=== PATIENT | male | born 1960 | race Hispanic/Latino ===

== ENCOUNTER 2018-12-10 17:31 | Inpatient (IN) | payer MEDICARE ==
[~2018-12-10] VITALS: Ht 165.1 cm; Wt 47.4 kg
[2018-12-10] MEDS ORDERED: SODIUM CHLORIDE 0.9% 1000ML 1,000 ML IV ONE ×2 (18:25→20:06)
[2018-12-10 18:59] LABS: BASOPHILS % (AUTO) 0.4 % (0.0-5.0); EOSINOPHILS % (AUTO) 0.1 % (0.0-8.0); HEMATOCRIT 33.2 % (42-54); LYMPHOCYTES % (AUTO) 12.1 % (21.0-51.0); MEAN CORPUSCULAR HEMOGLOBIN 30.4 pg (27.0-33.0); MEAN CORPUSCULAR HGB CONC 32.7 g/dL (32.0-36.0); MEAN CORPUSCULAR VOLUME 93.1 fL (79-99); NEUTROPHILS % (AUTO) 77.4 % (40.0-77.0); RED BLOOD CELL COUNT(AUTO) 3.56 MIL/uL (4.50-6.20); RED CELL DISTRIBUTION WIDTH 15.5 % (11.0-15.5); WHITE BLOOD COUNT (AUTO) 10.4 K/uL (4.8-10.8)
[2018-12-10 19:01] LABS: APPEARANCE,URINE Clear (CLEAR); BILIRUBIN,URINE Negative (NEGATIVE); COLOR,URINE Yellow (YELLOW); GLUCOSE, URINE (UA) Negative (NEGATIVE); KETONES,URINE Trace mg/dL (NEGATIVE); LEUKOCYTE ESTERASE ,URINE Negative (NEGATIVE); NITRATE,URINE Negative (NEGATIVE); OCCULT BLOOD,URINE Negative (NEGATIVE); PROTEIN,URINE Trace mg/dL (NEGATIVE)
[2018-12-10 19:11] LABS: CREATININE 1.4 mg/dL (0.5-1.5); POTASSIUM 4.7 mmol/L (3.5-5.1)
[2018-12-10 19:15] LABS: ALBUMIN 2.3 g/dL (3.5-5.0); BILIRUBIN,TOTAL 0.4 mg/dL (0.2-1.0); TOTAL PROTEIN, SERUM 8.9 g/dL (6.0-8.3)
[2018-12-10 19:21] LABS: PLATELET COUNT (AUTO) 717 K/uL (130-400)
[2018-12-10 19:40] LABS: BACTERIA,URINE Few /HPF (None Seen); RBC,URINE None Seen /HPF (0-1); SQUAMOUS EPITHELIAL CELL,UR None Seen /HPF (0-2); WBC,URINE 0-1 /HPF (0-1)
[2018-12-10] MEDS ORDERED: MORPHINE SULFATE 4 MG/1ML SYG ONE (20:06)
[2018-12-10] MEDS ORDERED: ONDANSETRON HCL 4 MG/2 ML VIAL ONE (20:06)
[2018-12-10 22:01] LABS: CRP QUANTITATIVE 208.7 mg/L (0.00-9.0)
[2018-12-10] MEDS ORDERED: LACTULOSE 20 GM/30 ML UDCUP PO PRN (22:15)
[2018-12-10] MEDS ORDERED: NITROGLYCERIN 0.4 MG SL TAB SL PRN (22:15)
[2018-12-10] MEDS: SODIUM CHLORIDE 0.9% 1000ML 1,000 ML IV SCH (22:15)
[2018-12-10] MEDS ORDERED: MORPHINE SULFATE 2 MG/ML 1ML SYG IV PRN (22:15)
[2018-12-10] MEDS ORDERED: ACETAMINOPHEN 650 MG SUPPOSITORY RC PRN ×2 (22:15)
[2018-12-10] MEDS ORDERED: ONDANSETRON HCL 4 MG/2 ML VIAL IV PRN (22:15)
[2018-12-10] MEDS ORDERED: BISACODYL 10 MG SUPP.RECT RC ONE (22:21)
[2018-12-10 22:34] LABS: INR 1.06 (0.85-1.15); PARTIAL THROMBOPLASTIN TIME 32.9 SEC (26.3-35.5); PROTHROMBIN TIME 11.1 SEC (9.6-11.6)
[2018-12-11] MEDS ORDERED: LACTULOSE 20 GM/30 ML UDCUP ONE (00:57)
[2018-12-11] MEDS ORDERED: MORPHINE SULFATE 4 MG/1ML SYG ONE (00:58)
[2018-12-11] MEDS ORDERED: SODIUM CHLORIDE 0.9% 1000ML 1,000 ML IV ONE (04:22)
[2018-12-11 04:42] LABS: HEMATOCRIT 29.4 % (42-54); MEAN CORPUSCULAR HEMOGLOBIN 31.3 pg (27.0-33.0); MEAN CORPUSCULAR HGB CONC 33.5 g/dL (32.0-36.0); MEAN CORPUSCULAR VOLUME 93.3 fL (79-99); PLATELET COUNT (AUTO) 589 K/uL (130-400); RED BLOOD CELL COUNT(AUTO) 3.15 MIL/uL (4.50-6.20); RED CELL DISTRIBUTION WIDTH 15.7 % (11.0-15.5); WHITE BLOOD COUNT (AUTO) 7.9 K/uL (4.8-10.8)
[2018-12-11 04:57] LABS: ALBUMIN 1.9 g/dL (3.5-5.0); BILIRUBIN,TOTAL 0.3 mg/dL (0.2-1.0); CREATININE 1.2 mg/dL (0.5-1.5); POTASSIUM 4.3 mmol/L (3.5-5.1); TOTAL PROTEIN, SERUM 7.4 g/dL (6.0-8.3)
[2018-12-11 04:58] LABS: BASOPHILS % (MANUAL) 2 % (0-2); EOSINOPHILS % (MANUAL) 1 % (1-6); LYMPHOCYTES % (MANUAL) 18 % (22-44); MAN.DIFF COMMENT-IMPRESSION MANUAL DIFFERENTIAL; MONOCYTES % (MANUAL) 10 % (2-9); PLATELET MORPHOLOGY COMMENT INCREASED; SEGMENTED NEUTROPHILS % 69 % (40-70)
[2018-12-11] MEDS ORDERED: SULF500T49 PO (06:26)
[2018-12-11] MEDS ORDERED: LACT10SO46 PO (06:26)
[2018-12-11] MEDS ORDERED: LISI-617 PO (06:26)
[2018-12-11] MEDS ORDERED: METO25TA6 PO (06:26)
[2018-12-11] MEDS ORDERED: PRED5TAB PO (06:26)
[2018-12-11] MEDS ORDERED: TRAM50TA4 PO (06:26)
[2018-12-11] MEDS ORDERED: TRAZ-185 PO (06:26)
[2018-12-11 06:29] VITALS: BP 125/77
[2018-12-11] MEDS: MORPHINE SULFATE 4 MG/1ML SYG IV PRN ×2 (06:43→13:55)
[2018-12-11 07:00] VITALS: BP 119/75
--- NOTE | 2018-12-11 08:00 | NUR ---
ASSESSMENT PT IS AAOX4 DENIES CP DENIES SOB DENIES NV NO COMPLAINTS RESTING IN BED. NO COMPLAINTS AT THIS TIME. CALL LIGHT WITHIN REACH, FAMILY IS AT BEDSIDE.
[2018-12-11] MEDS: SODIUM CHLORIDE 0.9% 1000ML 1,000 ML IV SCH ×2 (08:01→13:10)
[2018-12-11] MEDS: FAMOTIDINE/PF 20 MG/2 ML VIAL IV SCH (08:05)
[2018-12-11] MEDS: PREDNISONE 5 MG TABLET PO SCH ×2 (09:00→21:17)
[2018-12-11] MEDS ORDERED: ENOXAPARIN SODIUM 30 MG/0.3 ML SQ SCH (09:00)
[2018-12-11] MEDS: METOPROLOL TARTRATE 25 MG TAB PO SCH ×2 (09:11→21:17)
[2018-12-11 10:33] VITALS: BP 128/78
--- NOTE | 2018-12-11 10:40 | NUR ---
DR BOSWELL ROUNDED ORDERS RECEIVED
[2018-12-11] MEDS ORDERED: MAGNESIUM CITRATE 296 ML SOLUTION PO SCH (10:45)
--- NOTE | 2018-12-11 10:49 | NUR ---
DR OLIVEIRA CALLED INFO GIVEN TO HIM, ORDERED ME TO CANCEL GI CONSULT
--- NOTE | 2018-12-11 11:00 | NUR ---
INITIAL: Met with pt and spouse this morning to discuss dcp. Pt states that he lives w spouse and dtr. Prior to admission he was independent w ambulation and ADLs. He does not own any DME or receive services. Pt mentions that he feels safe and comfortable to return home at mt. CM to continue to follow and wait for Md recommendations. Addendum: 12/11/18 at 1712 by DEYANIRA ESPOSITO Amended: Links added.
[2018-12-11] MEDS: LISINOPRIL 5 MG TABLET PO SCH (11:58)
[2018-12-11 16:29] VITALS: BP 117/75
--- NOTE | 2018-12-11 17:53 | NUR ---
TRANSFER TO 3RD FLOOR ROOM 313, REPORT GIVEN TO FRANTZ CID. PATIENT TRANSFERRED VIA WC, TOLERATED WELL, ALL BELONGINGS TAKEN. TELE PACK ON PATIENT. AT BEDSIDE.
--- NOTE | 2018-12-11 18:00 | NUR ---
transfer fom 2nd. floor to room 313, report received from salome quintanilla. pt is awake, alert and at this time denies any discomfort or any other needs. family member at bedside. room orientation given and inst. to call for asst. vebalizes understanding.
[2018-12-11 20:56] VITALS: BP 116/73
[2018-12-11] MEDS: TRAZODONE HCL 50 MG TAB PO SCH (21:17)
[2018-12-12] VITALS (8 sets, daily range): BP systolic 104–125; BP diastolic 58–72
[2018-12-12] MEDS: SODIUM CHLORIDE 0.9% 1000ML 1,000 ML IV SCH ×3 (04:22→21:43)
[2018-12-12 06:28] LABS: BASOPHILS % (AUTO) 0.7 % (0.0-5.0); EOSINOPHILS % (AUTO) 0.1 % (0.0-8.0); HEMATOCRIT 27.4 % (42-54); MEAN CORPUSCULAR HEMOGLOBIN 31.3 pg (27.0-33.0); MEAN CORPUSCULAR HGB CONC 33.1 g/dL (32.0-36.0); MEAN CORPUSCULAR VOLUME 94.3 fL (79-99); MONOCYTES % (AUTO) 13.7 % (3.0-13.0); NEUTROPHILS % (AUTO) 72.5 % (40.0-77.0); NUCLEATED RED BLOOD CELLS 0.1 % (0.0-0.19); PLATELET COUNT (AUTO) 562 K/uL (130-400); RED CELL DISTRIBUTION WIDTH 15.9 % (11.0-15.5); WHITE BLOOD COUNT (AUTO) 7.3 K/uL (4.8-10.8)
[2018-12-12 06:37] LABS: CREATININE 1.3 mg/dL (0.5-1.5); POTASSIUM 4.3 mmol/L (3.5-5.1)
[2018-12-12] MEDS: MORPHINE SULFATE 4 MG/1ML SYG IV PRN ×2 (09:43→21:44)
[2018-12-12] MEDS: METOPROLOL TARTRATE 25 MG TAB PO SCH ×2 (09:44→21:45)
[2018-12-12] MEDS: FAMOTIDINE/PF 20 MG/2 ML VIAL IV SCH (09:44)
[2018-12-12] MEDS: PREDNISONE 5 MG TABLET PO SCH ×2 (09:44→21:45)
[2018-12-12] MEDS: LISINOPRIL 5 MG TABLET PO SCH (13:24)
--- NOTE | 2018-12-12 13:35 | NUR ---
RD Notification Pt with pancreatic and lung cancer with metastases. Pt with Clear Liquid diet at time of screen. Pt with fair PO intake at 50%. Rec to add 30mL Promod TID. Pt LBM 12/11/18. Pt monitored labs: Ca 7.3, Alb 1.9. Rec to consider appetite stimulant if PO intake declines. RD to continue to monitor. Please notify RD as additional nutrition concerns arise. Thank you. Addendum: 12/12/18 at [address] RD Amended: Links added.
--- NOTE | 2018-12-12 16:00 | NUR ---
MEDICAL RECORDS Obtained records from oncologist in [place] and placed in chart.
[2018-12-12] MEDS: TRAZODONE HCL 50 MG TAB PO SCH (21:44)
[2018-12-13 03:30] VITALS: BP 113/66
[2018-12-13 04:56] LABS: HEMATOCRIT 28.4 % (42-54); MEAN CORPUSCULAR HEMOGLOBIN 30.6 pg (27.0-33.0); MEAN CORPUSCULAR HGB CONC 32.3 g/dL (32.0-36.0); MEAN CORPUSCULAR VOLUME 94.8 fL (79-99); PLATELET COUNT (AUTO) 504 K/uL (130-400); RED CELL DISTRIBUTION WIDTH 16.2 % (11.0-15.5); WHITE BLOOD COUNT (AUTO) 7.7 K/uL (4.8-10.8)
[2018-12-13 05:14] LABS: CREATININE 1.2 mg/dL (0.5-1.5); POTASSIUM 4.7 mmol/L (3.5-5.1)
[2018-12-13 07:00] VITALS: BP_SYST 108; BP_SYST 143; BP_DIAS 67; BP_DIAS 92
[2018-12-13] MEDS: FAMOTIDINE/PF 20 MG/2 ML VIAL IV SCH (09:26)
[2018-12-13] MEDS: PREDNISONE 5 MG TABLET PO SCH (09:28)
[2018-12-13] MEDS: METOPROLOL TARTRATE 25 MG TAB PO SCH (09:30)
== END 2018-12-13 12:50 | disposition home or self-care (01) | DRG 438 ==
LOC: EDH 17:31 → EDHIP 21:45 → 2AH 12-11 05:41 → 3CH 12-11 17:24
PROVIDERS: ADMIT Hospitalist; ATTEND Hospitalist
DX: K85.90 Acute pancreatitis without necrosis or infection, unspecified (principal); E43 Unspecified severe protein-calorie malnutrition; E87.1 Hypo-osmolality and hyponatremia; C78.6 Secondary malignant neoplasm of retroperitoneum and peritoneum; C78.7 Secondary malignant neoplasm of liver and intrahepatic bile duct; R18.8 Other ascites; R64 Cachexia; Z68.1 Body mass index [BMI] 19.9 or less, adult; N18.9 Chronic kidney disease, unspecified; R00.0 Tachycardia, unspecified; I12.9 Hypertensive chronic kidney disease with stage 1 through stage 4 chronic kidney disease, or unspecified chronic kidney disease; D47.3 Essential (hemorrhagic) thrombocythemia; M06.9 Rheumatoid arthritis, unspecified; Z96.642 Presence of left artificial hip joint; Z90.411 Acquired partial absence of pancreas; Z82.49 Family history of ischemic heart disease and other diseases of the circulatory system; Z79.899 Other long term (current) drug therapy; Z85.07 Personal history of malignant neoplasm of pancreas; Z85.118 Personal history of other malignant neoplasm of bronchus and lung
CPT/HCPCS: 36415; 71045; 74021; 74176; 80048; 80053; 81001; 82140; 82150; 83690; 85025; 85027; 85610; 85651; 85730; 86140; 86316; 93005; G0378; J2270; J2405; J3490; J7030; J7512